=== PATIENT | female | born 1995 | race Caucasian/White ===

== ENCOUNTER 2017-09-06 11:01 | Inpatient (IN) | payer OTHER ==
[2017-09-06 11:40] VITALS: BMI 26.6
--- NOTE | 2017-09-06 14:00 | HP ---
COWS - Scale Resting Pulse: 0= OK 80 or Below Sweatin=Flushed/Facial Moisture Restless Observation: 3= Extraneous Movement Pupil Size: 2= Moderately Dilated Bone or Joint Aches: 2= Severe Diffuse Aches Runny Nose/ Eye Tearin= Runny Nose/Eyes GI Upset > 30mins: 3= Vomiting/Diarrhea Tremor Observation: 2= Slight Tremor Visible Yawning Observation: 2= >3x During Session Anxiety or Irritability: 2=Irritable/Anxious Goose Flesh Skin: 0=Smooth Skin COWS Score: 20 Admission ROS BHS - HPI Chief Complaint: i need help to stop using heroin and crystal meth Allergies/Adverse Reactions: Allergies Allergy/AdvReac Type Severity Reaction Status Date / Time No Known Allergies Allergy Verified 09/06/17 13:45 History of Present Illness: this 21 years old female with heroin and crystal meth,withdrawal symptom, seeking detox,last treatment in [place] 2 years ago syncope anxiety,depression,ptsd asthma nicotine dependence longest sobriety 4 months Exam Limitations: No Limitations - Ebola screening Have you traveled outside of the country in the last 21 days: No (N) Have you had contact with anyone from an Ebola affected area: No Have you been sick,other than usual withdrawal symptoms: No Do you have a fever: No Patient History - Patient Medical History Hx Anemia: No Hx Asthma: Yes (on albuterol inhlear) Hx Chronic Obstructive Pulmonary Disease (COPD): No Hx Cancer: No Hx Cardiac Disorders: No Hx Congestive Heart Failure: No Hx Hypertension: No Hx Hypercholesterolemia: No Hx Pacemaker: No HX Cerebrovascular Accident: No Hx Seizures: No Hx Dementia: No Hx Diabetes: No Hx Gastrointestinal Disorders: No Hx Liver Disease: No Hx Genitourinary Disorders: No Hx Sexually Transmitted Disorders: No Hx Renal Disease (ESRD): No Hx Thyroid Disease: No Hx Human Immunodeficiency Virus (HIV): No (last 07/08 negative) Hx Hepatitis C: No Hx Depression: Yes Hx Suicide Attempt: Yes (overdose at age [age],cutter at age 11f 10 years) Hx Bipolar Disorder: No Hx Schizophrenia: No Other Medical History: no suiidal,no homicidal - Patient Surgical History Past Surgical History: No - PPD History Previous Implant?: Yes Documented Results: Negative w/o proof Implanted On Prior [facility] Admission?: No PPD to be Administered?: Yes - Reproductive History Patient is a Female of Child Bearing Age (11 -55 yrs old): Yes Patient : No - Smoking Cessation Smoking history: Current every day smoker Have you smoked in the past 12 months: Yes Aproximately how many cigarettes per day: 20 Cigars Per Day: 0 Hx Chewing Tobacco Use: No Initiated information on smoking cessation: Yes 'Breaking Loose' booklet given: 09/06/17 - Substance & Tx. History Hx Alcohol Use: No Hx Substance Use: Yes Substance Use Type: Heroin Hx Substance Use Treatment: Yes (2016 in [place]) - Substances Abused Heroin Route: Injection Frequency: Daily Amount used: 20 BAGS Age of first use: 15 Date of Last Use: 09/04/17 CRYSTAL METH Route: Injection Frequency: Daily Amount used: 1 GRAM Age of first use: 20 Date of Last Use: 09/04/17 Family Disease History - Family Disease History Family Disease History: Other: Mother (alcohol,) Admission Physical Exam BHS - Vital Signs Vital Signs: Vital Signs - 24 hr 09/06/17 11:37 Temperature 96.8 F L Pulse Rate 96 H Respiratory 18 Rate Blood Pressure 124/70 - Physical General Appearance: Yes: Moderate Distress, Tremorous, Irritable, Sweating, Anxious HEENTM: Yes: Normal ENT Inspection, Normocephalic, JOCELIN, Other (gagnon ring in the face) Respiratory: Yes: Within Normal Limits, Lungs Clear, Normal Breath Sounds Neck: Yes: Within Normal Limits, Supple, Trachea in good position Breast: Yes: Breast Exam Deferred Cardiology: Yes: Within Normal Limits, Regular Rhythm, Regular Rate, S1, S2 Abdominal: Yes: Within Normal Limits, Normal Bowel Sounds, Non Tender, Soft Genitourinary: Yes: Within Normal Limits Back: Yes: Muscle Spasm Musculoskeletal: Yes: full range of Motion, Back pain, Muscle Pain Extremities: Yes: Normal Inspection, Normal Range of Motion, Tremors 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 NML intact, Alert, Motor Strength 5/5, Normal Mood /Affect Integumentary: Yes: Dry Lymphatic: Yes: Within Normal Limits - Diagnostic (1) Alcohol dependence with uncomplicated withdrawal Current Visit: Yes Status: Acute (2) Amphetamine addiction Current Visit: Yes Status: Acute (3) Asthma Current Visit: Yes Status: Acute (4) Depression Current Visit: Yes Status: Acute (5) Nicotine dependence Current Visit: Yes Status: Acute (6) Weight loss Current Visit: Yes Status: Acute Cleared for Admission [facility] - Detox or Rehab [facility] Level of Care: Medically Managed Detox Regimen/Protocol: Methadone [facility] Breath Alcohol Content Breath Alcohol Content: 0 Urine Pregancy Test - Result Urine Test Results: Negative- NO Line Present Urine Drug Screen - Results Drug Screen Negative: No Urine Drug Screen Results: OPI-Opiates, AMP-Amphetamines, MET-Methamphetamine
[2017-09-06] MEDS ORDERED: MAGNESIUM HYDROX 2400MG/30ML ORAL SUSPENSION 30 ML CUP PO PRN (14:16)
[2017-09-06] MEDS ORDERED: MAGNESIUM CITRATE 300 ML BOTTLE PO PRN (14:16)
[2017-09-06] MEDS ORDERED: ACETAMINOPHEN 325 MG TABLET (FP) PO PRN (14:16)
[2017-09-06] MEDS ORDERED: guaiFENesin/D-METHORPHAN HB 10 ML UNIT-DOSE CUPS PO PRN (14:16)
[2017-09-06] MEDS ORDERED: MENTHOL/PHENOL 1 EACH UD MM PRN (14:16)
[2017-09-06] MEDS ORDERED: IBUPROFEN 400 MG TABLET (FP) PO PRN (14:16)
[2017-09-06] MEDS ORDERED: MAG HYDROX/AL HYDROX/SIMETH 30 ML UNIT-DOSE CUP PO PRN (14:16)
[2017-09-06] MEDS ORDERED: NICOTINE POLACRILEX 2 MG GUM BC PRN (14:16)
[2017-09-06] MEDS ORDERED: LOPERAMIDE HCL 2 MG CAPSULE PO PRN (14:16)
[2017-09-06] MEDS ORDERED: P-EPHED 60MG/TRIPROLIDI 2.5MG TABLET PO PRN (14:16)
[2017-09-06] MEDS ORDERED: METHADONE HCL 10 MG TABLET (FOR DETOX USE ONLY) PO ONE ×2 (16:15→23:00)
--- NOTE | 2017-09-06 16:40 | CONSULT ---
[facility] Psychiatric Consult - Data Date of interview: 09/06/17 Admission source: [facility] Identifying data: This is 21 years old female, singlr, living at assisted, with heroin and crystal meth,withdrawal symptom,seeking for detox,. Reports psychiatric hospitalization history Substance Abuse History: Smoking Cessation. Smoking history: Current every day smoker. Have you smoked in the past 12 months: Yes. Aproximately how many cigarettes per day: 20. Cigars Per Day: 0. Hx Chewing Tobacco Use: No. Initiated information on smoking cessation: Yes. 'Breaking Loose' booklet given : 09/06/17. - Substance & Tx. History. Hx Alcohol Use: No. Hx Substance Use: Yes. Substance Use Type: Heroin. Hx Substance Use Treatment: Yes (2016 in [place]) Medical History: Denies significant medical issues Psychiatric History: Patient reports history of depression and anxiey, reports most recent psychiatric admission on 2016 at [facility] for [facility], reports taking priormtom admission: Risperdal 0.5mg po qhs. Gabapentine 30- 0mg po bid Physical/Sexual Abuse/Trauma History: Denies Additional Comment: Risperdal 0.5mg po qhs. Gabapentine 30-0mg po bid Mental Status Exam - Mental Status Exam Alert and Oriented to: Person Cognitive Function: Fair Patient Appearance: Well Groomed Mood: Anxious Affect: Mood Congruent Patient Behavior: Cooperative Speech Pattern: Appropriate Voice Loudness: Normal Thought Process: Goal Oriented Thought Disorder: Being Controlled Hallucinations: Denies Suicidal Ideation: Denies Homicidal Ideation: Denies Insight/Judgement: Fair Sleep: Difficulty falling asleep Appetite: Weight loss Muscle strength/Tone: Normal Gait/Station: Normal Additional Comments: Risperdal 0.5mg po qhs. Gabapentine 30-0mg po bid Psychiatric Findings - Problem List ([place] 1, 2,3) (1) Drug-induced mood disorder Current Visit: Yes Status: Acute (2) Alcohol dependence with uncomplicated withdrawal Current Visit: Yes Status: Acute (3) Amphetamine addiction Current Visit: Yes Status: Acute (4) Depression Current Visit: Yes Status: Acute (5) Nicotine dependence Current Visit: Yes Status: Acute (6) Weight loss Current Visit: Yes Status: Acute - Initial Treatment Plan Initial Treatment Plan: Risperdal 0.5mg po qhs. Gabapentine 30-0mg po bid
--- NOTE | 2017-09-06 16:54 | PN ---
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 Patient current does not use a wig but uses a hat to cover the bald spots. Plan : Allow patient to wear her hat on the unit.
[2017-09-06] MEDS: diazePAM 5 MG TABLET PO PRN ×2 (17:36→22:08)
[2017-09-06] MEDS: risperiDONE 0.5 MG TABLET (FP) PO SCH (22:07)
[2017-09-06] MEDS: THIAMINE HCL 100 MG TABLET (FP) PO SCH (22:07)
[2017-09-06] MEDS: GABAPENTIN 300 MG CAPSULE (FP) PO SCH (22:07)
[2017-09-06 23:28] LABS: URINE APPEARANCE SLCLOUDY; URINE BILIRUBIN NEGATIVE (NEGATIVE); URINE BLOOD NEGATIVE (NEGATIVE); URINE COLOR YELLOW; URINE GLUCOSE (UA) NEGATIVE (NEGATIVE); URINE KETONE NEGATIVE (NEGATIVE); URINE NITRITE NEGATIVE (NEGATIVE); URINE PROTEIN NEGATIVE (NEGATIVE); URINE UROBILINOGEN NEGATIVE mg/dL (0.2-1.0)
[2017-09-06 23:29] LABS: URINE LEUK ESTERASE 1+ (NEGATIVE)
[2017-09-06 23:33] LABS: EPI CELLS MODERATE /HPF (FEW); URINE BACTERIA RARE /hpf (NONE SEEN); URINE HYALINE CAST 1 /lpf; URINE MUCUS RARE
[2017-09-07] MEDS: diazePAM 5 MG TABLET PO PRN ×3 (02:08→22:05)
--- NOTE | 2017-09-07 08:00 | PN ---
S Progress Note Note: RESPONDED TO RAPID RESPONSE PATIENT WAS FOUND ON THE FLOOR IN THE BATHROOM BY STAFF ON ARRIVAL PATIENT IN IN BED NO SEIZURE ACTIVITY MOVEMENT ALL EXTREMITIES HEENT MORMAL,NECK NO JVD NO INJURY NOTED HEART NORMAL HEART SOUND LUNG CLEAR NO ABDOMINAL PAIN NO CALF TENDERNESS BP 115/74,P99,R29,T98.6 PULSE OX 99 IMPRESSION HISTORY OF A FALL FALL PROTOCOL 1 FALL PRECAUTION
--- NOTE | 2017-09-07 08:39 | PN ---
[facility] Progress Note Note: to er [facility] for evaluation,spoke with dr molina loya, correction r is 20 instead of 29
[2017-09-07 09:55] LABS: HEMATOCRIT 40.4 % (32.4-45.2); HEMOGLOBIN 12.8 GM/dL (10.7-15.3); MCH 27.3 pg (25.7-33.7); MCHC 31.6 g/dl (32.0-36.0); MEAN CELL VOLUME 86.2 fl (80-96); MEAN PLT VOLUME 11.6 fl (7.5-11.1); PLATELET COUNT 213 K/MM3 (134-434); RBC 4.68 M/mm3 (3.60-5.2); RDW 14.8 % (11.6-15.6); WHITE BLOOD COUNT 9.1 K/mm3 (4.0-10.0)
[2017-09-07] MEDS ORDERED: METHADONE HCL 10 MG TABLET (FOR DETOX USE ONLY) PO ONE (10:00)
[2017-09-07 10:09] LABS: ALBUMIN 3.7 g/dl (3.4-5.0); ANION GAP 6 (8-16); BLOOD UREA NITROGEN 7 mg/dL (7-18); CALCIUM 8.4 mg/dL (8.5-10.1); CHLORIDE 103 mmol/L (98-107); CO2 32 mmol/L (21-32); CREATININE 0.6 mg/dL (0.55-1.02); GLUCOSE,RANDOM 114 mg/dL (74-106); SGOT/AST 14 U/L (15-37); SGPT/ALT 23 U/L (12-78); SODIUM 141 mmol/L (136-145)
[2017-09-07 10:18] LABS: ALK PHOS 71 U/L (45-117); BILIRUBIN,TOTAL 0.5 mg/dL (0.2-1.0)
[2017-09-07] MEDS: GABAPENTIN 300 MG CAPSULE (FP) PO SCH ×2 (14:31→22:04)
[2017-09-07] MEDS: PRENATAL VITAMINS W/ FOLIC ACID TABLET (FP) PO SCH (14:31)
[2017-09-07] MEDS: THIAMINE HCL 100 MG TABLET (FP) PO SCH (22:04)
[2017-09-07] MEDS: risperiDONE 0.5 MG TABLET (FP) PO SCH (22:04)
[2017-09-08] MEDS ORDERED: METHADONE HCL 5 MG TABLET (FOR DETOX USE ONLY) PO ONE (10:00)
[2017-09-08] MEDS: diazePAM 5 MG TABLET PO PRN (10:39)
[2017-09-08] MEDS: PRENATAL VITAMINS W/ FOLIC ACID TABLET (FP) PO SCH (10:39)
[2017-09-08] MEDS: GABAPENTIN 300 MG CAPSULE (FP) PO SCH ×2 (10:39→22:27)
--- NOTE | 2017-09-08 15:47 | PN ---
S CIWA - CIWA Score Nausea/Vomitin Muscle Tremors: 3 Anxiety: 3 Agitation: 3 Paroxysmal Sweats: 1-Minimal Palms Moist Orientation: 0-Oriented Tacttile Disturbances: 1-Very Mild Itch/Numbness Auditory Disturbances: 1-Very Mild Visual Disturbances: 0-None Headache: 2-Mild CIWA-Ar Total Score: 17 BHS Progress Note (SOAP) Subjective: ALERT,IRRITABLE,ANXIOUS,INTERRUPTED SLEEP,TREMOR Objective: 09/08/17 15:45 Vital Signs Temperature 97.6 F 09/08/17 15:26 Pulse Rate 111 H 09/08/17 15:26 Respiratory Rate 16 09/08/17 15:26 Blood Pressure 116/55 09/08/17 15:26 O2 Sat by Pulse Oximetry (%) EKG SINUS RHYTHM WITH SINUS ARRHYTHMIA NORMAL ECG 09/08/17 15:47 Laboratory Last Values WBC 9.1 K/mm3 (4.0-10.0) 09/07/17 06:15 RBC 4.68 M/mm3 (3.60-5.2) 09/07/17 06:15 Hgb 12.8 GM/dL (10.7-15.3) 09/07/17 06:15 Hct 40.4 % (32.4-45.2) 09/07/17 06:15 MCV 86.2 fl (80-96) 09/07/17 06:15 MCH 27.3 pg (25.7-33.7) 09/07/17 06:15 MCHC 31.6 g/dl (32.0-36.0) L 09/07/17 06:15 RDW 14.8 % (11.6-15.6) 09/07/17 06:15 Plt Count 213 K/MM3 (134-434) 09/07/17 06:15 MPV 11.6 fl (7.5-11.1) H 09/07/17 06:15 Sodium 141 mmol/L (136-145) 09/07/17 06:15 Potassium 4.0 mmol/L (3.5-5.1) 09/07/17 06:15 Chloride 103 mmol/L (98-107) 09/07/17 06:15 Carbon Dioxide 32 mmol/L (21-32) 09/07/17 06:15 Anion Gap 6 (8-16) L 09/07/17 06:15 BUN 7 mg/dL (7-18) 09/07/17 06:15 Creatinine 0.6 mg/dL (0.55-1.02) 09/07/17 06:15 Creat Clearance w eGFR > 60 (>60) 09/07/17 06:15 POC Glucometer 89 UNITS (80-120) 09/07/17 07:39 Random Glucose 114 mg/dL (74-106) H 09/07/17 06:15 Calcium 8.4 mg/dL (8.5-10.1) L 09/07/17 06:15 Total Bilirubin 0.5 mg/dL (0.2-1.0) 09/07/17 06:15 AST 14 U/L (15-37) L 09/07/17 06:15 ALT 23 U/L (12-78) 09/07/17 06:15 Alkaline Phosphatase 71 U/L (45-117) 09/07/17 06:15 Total Protein 7.0 g/dl (6.4-8.2) 09/07/17 06:15 Albumin 3.7 g/dl (3.4-5.0) 09/07/17 06:15 Urine Color Yellow 09/06/17 23:10 Urine Appearance Slcloudy 09/06/17 23:10 Urine pH 7.0 (5.0-8.0) 09/06/17 23:10 Ur Specific [place] 1.009 (1.001-1.035) 09/06/17 23:10 Urine Protein Negative (NEGATIVE) 09/06/17 23:10 Urine Glucose (UA) Negative (NEGATIVE) 09/06/17 23:10 Urine Ketones Negative (NEGATIVE) 09/06/17 23:10 Urine Blood Negative (NEGATIVE) 09/06/17 23:10 Urine Nitrite Negative (NEGATIVE) 09/06/17 23:10 Urine Bilirubin Negative (NEGATIVE) 09/06/17 23:10 Urine Urobilinogen Negative mg/dL (0.2-1.0) 09/06/17 23:10 Ur Leukocyte Esterase 1+ (NEGATIVE) H 09/06/17 23:10 Urine WBC (Auto) 4 /hpf (3-5) 09/06/17 23:10 Urine RBC (Auto) <1 /hpf (0-3) 09/06/17 23:10 Ur Epithelial Cells Moderate /HPF (FEW) 09/06/17 23:10 Urine Bacteria Rare /hpf (NONE SEEN) 09/06/17 23:10 Hyaline Casts 1 /lpf 09/06/17 23:10 Urine Mucus Rare 09/06/17 23:10 RPR Titer Nonreactive (NONREACTIVE) 09/07/17 06:15 HIV 1&2 Antibody Screen Negative 09/06/17 14:40 HIV P24 Antigen Negative 09/06/17 14:40 Assessment: 09/08/17 15:47 WITHDRAWAL SYMPTOM Plan: CONTINUE DETOX
[2017-09-08] MEDS: ALBUTEROL SO4 18 GM HFA INHALER IH PRN (16:01)
[2017-09-08] MEDS: risperiDONE 0.5 MG TABLET (FP) PO SCH (22:27)
[2017-09-08] MEDS: THIAMINE HCL 100 MG TABLET (FP) PO SCH (22:27)
[2017-09-08] MEDS: hydrOXYzine PAMOATE 50 MG CAPSULE (FP) PO PRN (22:28)
[2017-09-09] MEDS ORDERED: METHADONE HCL 5 MG TABLET (FOR DETOX USE ONLY) PO ONE (10:00)
[2017-09-09] MEDS ORDERED: ONDANSETRON *ODT* 4 MG TABLET SL ONE (10:23)
--- NOTE | 2017-09-09 10:28 | PN ---
BHS COWS - Scale Resting Pulse: 1= [place] 81-100 Sweatin= Chills/Flushing Restless Observation: 1= Difficult to Sit Still Pupil Size: 0= Normal to Room Light Bone or Joint Aches: 1= Mild Discomfort Runny Nose/ Eye Tearin= Nasal Congestion GI Upset > 30mins: 2= Nausea/Diarrhea Tremor Observation of Outstretched Hands: 2= Slight Tremor Visible Yawning Observation: 1= 1-2x During Session Anxiety or Irritability: 2=Irritable/Anxious Goose Flesh Skin: 0=Smooth Skin COWS Score: 12 BHS Progress Note (SOAP) Subjective: GI distress sweat restlessness anxiety irritable Objective: 09/09/17 10:41 Vital Signs Temperature 98.0 F 09/09/17 06:15 Pulse Rate 81 09/09/17 06:15 Respiratory Rate 15 09/09/17 06:15 Blood Pressure 119/82 09/09/17 06:15 O2 Sat by Pulse Oximetry (%) Laboratory Last Values WBC 9.1 K/mm3 (4.0-10.0) 09/07/17 06:15 RBC 4.68 M/mm3 (3.60-5.2) 09/07/17 06:15 Hgb 12.8 GM/dL (10.7-15.3) 09/07/17 06:15 Hct 40.4 % (32.4-45.2) 09/07/17 06:15 MCV 86.2 fl (80-96) 09/07/17 06:15 MCH 27.3 pg (25.7-33.7) 09/07/17 06:15 MCHC 31.6 g/dl (32.0-36.0) L 09/07/17 06:15 RDW 14.8 % (11.6-15.6) 09/07/17 06:15 Plt Count 213 K/MM3 (134-434) 09/07/17 06:15 MPV 11.6 fl (7.5-11.1) H 09/07/17 06:15 Sodium 141 mmol/L (136-145) 09/07/17 06:15 Potassium 4.0 mmol/L (3.5-5.1) 09/07/17 06:15 Chloride 103 mmol/L (98-107) 09/07/17 06:15 Carbon Dioxide 32 mmol/L (21-32) 09/07/17 06:15 Anion Gap 6 (8-16) L 09/07/17 06:15 BUN 7 mg/dL (7-18) 09/07/17 06:15 Creatinine 0.6 mg/dL (0.55-1.02) 09/07/17 06:15 Creat Clearance w eGFR > 60 (>60) 09/07/17 06:15 POC Glucometer 89 UNITS (80-120) 09/07/17 07:39 Random Glucose 114 mg/dL (74-106) H 09/07/17 06:15 Calcium 8.4 mg/dL (8.5-10.1) L 09/07/17 06:15 Total Bilirubin 0.5 mg/dL (0.2-1.0) 09/07/17 06:15 AST 14 U/L (15-37) L 09/07/17 06:15 ALT 23 U/L (12-78) 09/07/17 06:15 Alkaline Phosphatase 71 U/L (45-117) 09/07/17 06:15 Total Protein 7.0 g/dl (6.4-8.2) 09/07/17 06:15 Albumin 3.7 g/dl (3.4-5.0) 09/07/17 06:15 Urine Color Yellow 09/06/17 23:10 Urine Appearance Slcloudy 09/06/17 23:10 Urine pH 7.0 (5.0-8.0) 09/06/17 23:10 Ur Specific [place] 1.009 (1.001-1.035) 09/06/17 23:10 Urine Protein Negative (NEGATIVE) 09/06/17 23:10 Urine Glucose (UA) Negative (NEGATIVE) 09/06/17 23:10 Urine Ketones Negative (NEGATIVE) 09/06/17 23:10 Urine Blood Negative (NEGATIVE) 09/06/17 23:10 Urine Nitrite Negative (NEGATIVE) 09/06/17 23:10 Urine Bilirubin Negative (NEGATIVE) 09/06/17 23:10 Urine Urobilinogen Negative mg/dL (0.2-1.0) 09/06/17 23:10 Ur Leukocyte Esterase 1+ (NEGATIVE) H 09/06/17 23:10 Urine WBC (Auto) 4 /hpf (3-5) 09/06/17 23:10 Urine RBC (Auto) <1 /hpf (0-3) 09/06/17 23:10 Ur Epithelial Cells Moderate /HPF (FEW) 09/06/17 23:10 Urine Bacteria Rare /hpf (NONE SEEN) 09/06/17 23:10 Hyaline Casts 1 /lpf 09/06/17 23:10 Urine Mucus Rare 09/06/17 23:10 RPR Titer Nonreactive (NONREACTIVE) 09/07/17 06:15 HIV 1&2 Antibody Screen Negative 09/06/17 14:40 HIV P24 Antigen Negative 09/06/17 14:40 lab noted Assessment: 09/09/17 10:42 withdrawal sx Plan: continue detox
[2017-09-09] MEDS: GABAPENTIN 300 MG CAPSULE (FP) PO SCH ×3 (11:14→23:36)
[2017-09-09] MEDS: diazePAM 5 MG TABLET PO PRN (11:14)
[2017-09-09] MEDS: PRENATAL VITAMINS W/ FOLIC ACID TABLET (FP) PO SCH (11:14)
[2017-09-09] MEDS: RANITIDINE HCL 150 MG TABLET (FP) PO SCH ×3 (11:16→23:36)
[2017-09-09] MEDS: hydrOXYzine PAMOATE 50 MG CAPSULE (FP) PO PRN (19:58)
[2017-09-09] MEDS: THIAMINE HCL 100 MG TABLET (FP) PO SCH ×2 (23:30→23:36)
[2017-09-09] MEDS: risperiDONE 0.5 MG TABLET (FP) PO SCH ×2 (23:30→23:36)
[2017-09-10] MEDS ORDERED: METHADONE HCL 10 MG TABLET (FOR DETOX USE ONLY) PO ONE (10:00)
[2017-09-10] MEDS: GABAPENTIN 300 MG CAPSULE (FP) PO SCH ×2 (10:33→22:21)
[2017-09-10] MEDS: ALBUTEROL SO4 18 GM HFA INHALER IH PRN (10:34)
[2017-09-10] MEDS: RANITIDINE HCL 150 MG TABLET (FP) PO SCH ×2 (10:34→22:21)
[2017-09-10] MEDS: PRENATAL VITAMINS W/ FOLIC ACID TABLET (FP) PO SCH (10:34)
--- NOTE | 2017-09-10 11:54 | PN ---
BHS Progress Note (SOAP) Subjective: anxious sleep disturbance Objective: 09/10/17 11:53 A & O x 3 In no acute distress Assessment: 09/10/17 11:53 Vital Signs Temperature 97.9 F 09/10/17 06:00 Pulse Rate 100 H 09/10/17 06:00 Respiratory Rate 18 09/10/17 06:00 Blood Pressure 114/68 09/10/17 06:00 O2 Sat by Pulse Oximetry (%) Plan: continue detox
[2017-09-10] MEDS: risperiDONE 0.5 MG TABLET (FP) PO SCH (22:21)
[2017-09-10] MEDS: THIAMINE HCL 100 MG TABLET (FP) PO SCH (22:21)
[2017-09-11] MEDS ORDERED: METHADONE HCL 5 MG TABLET (FOR DETOX USE ONLY) PO ONE (06:00)
[2017-09-11 06:29] VITALS: BP 113/53; PULSE 100; TEMP 98.1
[2017-09-11] MEDS: GABAPENTIN 300 MG CAPSULE (FP) PO SCH (09:10)
[2017-09-11] MEDS: RANITIDINE HCL 150 MG TABLET (FP) PO SCH (09:10)
[2017-09-11] MEDS: PRENATAL VITAMINS W/ FOLIC ACID TABLET (FP) PO SCH (09:10)
--- NOTE | 2017-09-11 10:31 | DS ---
[facility] Detox Discharge Summary Admission Date: 09/06/17 Discharge Date: 09/11/17 - History Present History: Opioid Dependence Pertinent Past History: nicotine dependence - Physical Exam Results Vital Signs: Vital Signs Temperature 98.1 F 09/11/17 06:00 Pulse Rate 100 H 09/11/17 06:00 Respiratory Rate 16 09/11/17 06:00 Blood Pressure 113/53 09/11/17 06:00 O2 Sat by Pulse Oximetry (%) Pertinent Admission Physical Exam Findings: withdrawal sx Laboratory Last Values WBC 9.1 K/mm3 (4.0-10.0) 09/07/17 06:15 RBC 4.68 M/mm3 (3.60-5.2) 09/07/17 06:15 Hgb 12.8 GM/dL (10.7-15.3) 09/07/17 06:15 Hct 40.4 % (32.4-45.2) 09/07/17 06:15 MCV 86.2 fl (80-96) 09/07/17 06:15 MCH 27.3 pg (25.7-33.7) 09/07/17 06:15 MCHC 31.6 g/dl (32.0-36.0) L 09/07/17 06:15 RDW 14.8 % (11.6-15.6) 09/07/17 06:15 Plt Count 213 K/MM3 (134-434) 09/07/17 06:15 MPV 11.6 fl (7.5-11.1) H 09/07/17 06:15 Sodium 141 mmol/L (136-145) 09/07/17 06:15 Potassium 4.0 mmol/L (3.5-5.1) 09/07/17 06:15 Chloride 103 mmol/L (98-107) 09/07/17 06:15 Carbon Dioxide 32 mmol/L (21-32) 09/07/17 06:15 Anion Gap 6 (8-16) L 09/07/17 06:15 BUN 7 mg/dL (7-18) 09/07/17 06:15 Creatinine 0.6 mg/dL (0.55-1.02) 09/07/17 06:15 Creat Clearance w eGFR > 60 (>60) 09/07/17 06:15 POC Glucometer 89 UNITS (80-120) 09/07/17 07:39 Random Glucose 114 mg/dL (74-106) H 09/07/17 06:15 Calcium 8.4 mg/dL (8.5-10.1) L 09/07/17 06:15 Total Bilirubin 0.5 mg/dL (0.2-1.0) 09/07/17 06:15 AST 14 U/L (15-37) L 09/07/17 06:15 ALT 23 U/L (12-78) 09/07/17 06:15 Alkaline Phosphatase 71 U/L (45-117) 09/07/17 06:15 Total Protein 7.0 g/dl (6.4-8.2) 09/07/17 06:15 Albumin 3.7 g/dl (3.4-5.0) 09/07/17 06:15 Urine Color Yellow 09/06/17 23:10 Urine Appearance Slcloudy 09/06/17 23:10 Urine pH 7.0 (5.0-8.0) 09/06/17 23:10 Ur Specific [place] 1.009 (1.001-1.035) 09/06/17 23:10 Urine Protein Negative (NEGATIVE) 09/06/17 23:10 Urine Glucose (UA) Negative (NEGATIVE) 09/06/17 23:10 Urine Ketones Negative (NEGATIVE) 09/06/17 23:10 Urine Blood Negative (NEGATIVE) 09/06/17 23:10 Urine Nitrite Negative (NEGATIVE) 09/06/17 23:10 Urine Bilirubin Negative (NEGATIVE) 09/06/17 23:10 Urine Urobilinogen Negative mg/dL (0.2-1.0) 09/06/17 23:10 Ur Leukocyte Esterase 1+ (NEGATIVE) H 09/06/17 23:10 Urine WBC (Auto) 4 /hpf (3-5) 09/06/17 23:10 Urine RBC (Auto) <1 /hpf (0-3) 09/06/17 23:10 Ur Epithelial Cells Moderate /HPF (FEW) 09/06/17 23:10 Urine Bacteria Rare /hpf (NONE SEEN) 09/06/17 23:10 Hyaline Casts 1 /lpf 09/06/17 23:10 Urine Mucus Rare 09/06/17 23:10 RPR Titer Nonreactive (NONREACTIVE) 09/07/17 06:15 HIV 1&2 Antibody Screen Negative 09/06/17 14:40 HIV P24 Antigen Negative 09/06/17 14:40 lab noted - Treatment Hospital Course: Detox Protocol Followed, Detoxed Safely, Responded well, Discharged Condition Good, Rehab Referral Accepted Patient has Accepted a Rehab Referral to: as per counselor arranged - Medication Discharge Medications: Ambulatory Orders Gabapentin 300 mg PO BID #60 capsule 09/06/17 Risperidone [Risperdal -] 0.5 mg PO HS #30 tablet 09/06/17 - Diagnosis (1) Alcohol dependence with uncomplicated withdrawal Status: Acute (2) Depression Status: Suspected Qualifiers: Depression Type: dysthymia Qualified Code(s): F34.1 - Dysthymic disorder - AMA Did Patient Leave Against Medical Advice: No
--- NOTE | 2017-09-14 11:48 | EKG ---
Test Reason : Blood Pressure : / mmHG Vent. Rate : 065 BPM Atrial Rate : 065 BPM P-R Int : 144 ms QRS Dur : 102 ms QT Int : 434 ms P-R-T Axes : 061 057 061 degrees QTc Int : 451 ms NORMAL SINUS RHYTHM WITH SINUS ARRHYTHMIA NORMAL ECG NO PREVIOUS ECGS AVAILABLE Confirmed by ALIA VEGA MD ([id number]) on 09/07/2017 9:20:45 AM Also confirmed by ALIA VEGA MD ([id number]), video effects editor CHRISS PANTOJA ([id number]) on 09/14/2017 11:48:07 AM Referred By: Confirmed By:ALIA VEGA MD
== END 2017-09-11 09:30 | disposition home or self-care (01) | DRG 775 ==
LOC: YASAS 11:01 → Y6N 15:15
PROVIDERS: ADMIT Internal Medicine; ATTEND Internal Medicine
PROC: HZ2ZZZZ Detoxification Services for Substance Abuse Treatment (ICD-10-PCS; principal; 2017-09-06)
DX: F10.230 Alcohol dependence with withdrawal, uncomplicated (principal); F15.20 Other stimulant dependence, uncomplicated; F17.210 Nicotine dependence, cigarettes, uncomplicated; F19.24 Other psychoactive substance dependence with psychoactive substance-induced mood disorder; F34.1 Dysthymic disorder; J45.909 Unspecified asthma, uncomplicated; R63.4 Abnormal weight loss; Z68.26 Body mass index [BMI] 26.0-26.9, adult; Z91.5 Personal history of self-harm; Z59.0 Homelessness
CPT/HCPCS: 36415; 80053; 81003; 81015; 82962; 85027; 86593; 87389; 93005; 93010

== ENCOUNTER 2017-09-07 09:23 | Emergency (ER) | payer OTHER ==
--- NOTE | 2017-09-07 09:37 | PDOC ---
History of Present Illness - General History Source: Patient, EMS Exam Limitations: No Limitations - History of Present Illness Initial Comments: 09/07/17 11:13 Patient is a 21 year old female, from [facility], with a significant past medical history of Asthma, Anemia, and Polysubstance abuse, who presents to the ED s/p possible fall. As per EMS patient was found by Detox staff unresponsive on the floor in her bathroom, before waking up and walking to her bed, prompting the center to follow protocol and send the patient to the ED for further evaluation. Patient reports being unable to sleep last night, after receiving prescribed medications before bed. She reports waiting online for her medications this morning she begun to experience increased warmth and irritability. Patient reports going back to her room, before beginning to cry and experience slight nausea. She reports experiencing 1 episode of vomiting stating, it felt like i was beginning to choke on my vomiting which made me start to panic. She reports feeling her throat close up followed by associated chest heaviness that she states felt like a brick was on my chest, before losing consciousness. Pt notes she was hunched over on the toilet when she syncopized. Patient currently reports experiencing mid diffuse crampy abdominal pain as well as associated headache and nausea that she states feels similar to her withdrawal experiences. Denies change in vision, neck pain, back pain, extremity pain. Denies contact with sick individuals, out of state travelling. Denies constipation, diarrhea, dysuria, hematuria. Denies any other symptoms. LMP was in dec, notes she has irregular periods. Allergies: None Social history: Lives 2 [facility]. Current smoker. No alcohol. Crystal Meth and Heroin use. Surgical history: None PMD: None <Luis Regalado - Last Filed: 09/07/17 11:13> <Michael Taylor - Last Filed: 09/07/17 12:41> - General Stated Complaint: FALL Time Seen by Provider: 09/07/17 09:29 Past History <Luis Regalado - Last Filed: 09/07/17 11:13> - Past Medical History Anemia: No Asthma: Yes (on albuterol inhlear) Cancer: No Cardiac Disorders: No CVA: No COPD: No CHF: No Dementia: No Diabetes: No GI Disorders: No Disorders: No HTN: No Hypercholesterolemia: No Kidney Stones: No Liver Disease: No Seizures: No Thyroid Disease: No - Reproductive History PID: No - Suicide/Smoking/Psychosocial Hx Smoking History: Current every day smoker Have you smoked in the past 12 months: Yes Number of Cigarettes Smoked Daily: 20 Cigars Per Day: 0 'Breaking Loose' booklet given: 09/06/17 Hx Alcohol Use: No Drug/Substance Use Hx: Yes Substance Use Type: Heroin Hx Substance Use Treatment: Yes (2016 in [place]) <Michael Taylor - Last Filed: 09/07/17 12:41> - Past Medical History Allergies/Adverse Reactions: Allergies Allergy/AdvReac Type Severity Reaction Status Date / Time No Known Allergies Allergy Verified 09/07/17 09:43 Home Medications: Ambulatory Orders Gabapentin 300 mg PO BID #60 capsule 09/06/17 Gabapentin [Neurontin -] 0 mg PO BID 09/06/17 Risperidone [Risperdal -] 0.5 mg PO HS #30 tablet 09/06/17 Review of Systems - Review of Systems Able to Perform ROS?: Yes Comments:: 09/07/17 11:14 CONSTITUTIONAL: No reported: Fever, Chills, Diaphoresis, Generalized Weakness, Malaise, Loss of Appetite HEENT: No reported: Rhinorrhea, Nasal Congestion, Throat Pain, Throat Swelling, Difficulty Swallowing, Mouth Swelling, Ear Pain, Eye Pain, Visual Changes CARDIOVASCULAR: +Chest tightness No reported: Syncope, Palpitations, Irregular Heart Rate, Lightheadedness, Peripheral Edema RESPIRATORY: No reported: Cough, SOB with Exertion, Orthopnea, Wheezing, Stridor, Hemoptysis GASTROINTESTINAL: +Abdominal pain. +Nausea. +vomiting. No reported: Abdominal Distension, Diarrhea, Constipation, Melena, Hematochezia GENITOURINARY: No reported: Dysuria, Frequency, Urgency, Hesitancy, Flank Pain, Genital Pain MUSCULOSKELETAL: No reported: Myalgia, Arthralgia, Joint Swelling, Back pain, Neck Pain SKIN: No reported: Rash, Itching, Pallor HEMATOLOGIC/IMMUNOLOGIC: No reported: Easy Bleeding, Easy Bruising, Lymphadenopathy, Frequent infections ENDOCRINE: No reported: Unexplained Weight Gain, Unexplained Weight Loss, Heat Intolerance , Cold Intolerance NEUROLOGIC: +Headache, No reported: Focal Weakness, Paresthesias, Vertigo, Lightheadedness, Unsteady Gait, Seizure, Mental Status Changes, Incontinence PSYCHIATRIC: No reported: Anxiety, Depression All Other Systems: Reviewed and Negative <Luis Regalado - Last Filed: 09/07/17 11:13> *Physical Exam - Vital Signs Last Vital Signs Temp Pulse Resp BP Pulse Ox 98.3 F 102 H 18 109/63 100 09/07/17 09:25 09/07/17 09:25 09/07/17 09:25 09/07/17 09:25 09/07/17 09:25 - Physical Exam Comments: 09/07/17 11:14 GENERAL: The patient is awake, alert, and fully oriented, Nontoxic - in no acute distress. HEAD: +Mild left scalp tenderness. Normocephalic, atraumatic. EYES: pupils 3mm and reactive symmetrically, extraocular movements intact, sclera anicteric, conjunctiva clear. ENT: +Dry mucus membrane. Normal voice, NECK: Normal range of motion, No JVD, no focal midline tenderness incervical/ thoracic/lumbar spine LUNGS: Breath sounds equal, clear to auscultation bilaterally. No wheezes, no rhonchi, no rales. HEART: Regular rate and rhythm, normal S1 and S2 without murmur, rub or gallop. ABDOMEN: Soft, nontender, normoactive bowel sounds. No guarding, no rebound. No masses. No CVA tenderness EXTREMITIES: Normal range of motion, no edema. No clubbing or cyanosis. No cords , erythema, or tenderness. NEUROLOGICAL: No facial asymmetry, Normal speech, normal gait. PSYCH: Normal mood, normal affect. SKIN: Warm, Dry, normal turgor. <Luis Regalado - Last Filed: 09/07/17 11:13> Heart Score/ECG Review - ECG Impressions Comment:: 09/07/17 09:59 Twelve-lead EKG was performed and reviewed by me. There is normal sinus rhythm with a normal rate. rate of [address] changes suggestive of acute ischemia intervals are normal <Michael Taylor - Last Filed: 09/07/17 12:41> ED Treatment Course - ADDITIONAL ORDERS Additional order review: Laboratory Results 09/07/17 09/07/17 09:45 09:45 Lipase 89 Serum , Qual Negative <Luis Regalado - Last Filed: 09/07/17 11:13> Medical Decision Making - Medical Decision Making 09/07/17 09:47 21y F hx of heroin use, asthma, anemia, migraine headaches presents from [facility] for evaluation of unwitnessed fall. The patient is at detox for heroin, arrived eysterday, couldnt sleep last night so recieved several doses of valuim to help her sleep, untilmately she didnt sleep well, and started feeling sick when she went to get her meds. she went to the bathroom where she was at the [facility] and thinks she may have syncopized there. The patient endorses mild headache and abd pain c/w her detox syndrome. Currently states she feels a bit better. on exam pt appears well mildldy dry mmm mild scalp tenderness to the L scalp abd soft nontender will give tylenol, reglan, liter of LR will ck pregnency test and lipase pt had cbc and cmp and UA sent form [facility] so will defer sending these labs A portion of this note was documented by scribe services under my direction. I have reviewed the details of the note, within reason, and agree with the documentation with the following case summary and management plan written by me 09/07/17 12:41 pt feeling better labs reviewed and unremarkble ct unremarkble pts abd reassessed and is soft nontender will dc back to [facility] for detox I discussed the physical exam findings, ancillary test results and final diagnoses with the patient. I answered all of the patient's questions. The patient was satisfied with the care received and felt comfortable with the discharge plan and treatment plan. The patient will call their primary care physician within 24 hours to arrange follow-up and will return to the Emergency Department with any new, persistent or worsening symptoms. <Michael Taylor - Last Filed: 09/07/17 12:41> *DC/Admit/Observation/Transfer - Attestations Scribe Attestion: 09/07/17 11:14 Documentation prepared by Luis Regalado, acting as medical aide for Michael Taylor MD, /DO. <Luis Regalado - Last Filed: 09/07/17 11:13> - Discharge Dispostion Admit: No <Michael Taylor - Last Filed: 09/07/17 12:41> Diagnosis at time of Disposition: Head injury due to trauma Qualifiers: Encounter type: initial encounter Qualified Code(s): S09.90XA - Unspecified injury of head, initial encounter - Discharge Dispostion Condition at time of disposition: Stable - Referrals Referrals: Annelise Conner MD [House Staff] - - Patient Instructions Printed Discharge Instructions: DI for Closed Head Injury Additional Instructions: Return to the emergency department immediately with ANY new, persistent or worsening symptoms. You MUST call and follow up with your doctor tomorrow for further evaluation of your symptoms. Results were discussed with you. Please make sure your doctor reviews the results of your emergency evaluation. If you had any xrays during your visit, it was read preliminarily by myself, a Radiologist will review it and if there are any additional findings we will call you.
[2017-09-07] MEDS ORDERED: LACTATED RINGERS SOLUTION 1,000 ML/1,000 ML INFUS.BAG IV SCH (09:45)
[2017-09-07 09:59] VITALS: BMI 26.5
[2017-09-07 14:40] VITALS: BP 133/67; PULSE 87; TEMP 98.1
--- NOTE | 2017-09-08 12:15 | EKG ---
Test Reason : Blood Pressure : / mmHG Vent. Rate : 091 BPM Atrial Rate : 091 BPM P-R Int : 160 ms QRS Dur : 088 ms QT Int : 362 ms P-R-T Axes : 067 059 059 degrees QTc Int : 445 ms NORMAL SINUS RHYTHM POSSIBLE LEFT ATRIAL ENLARGEMENT BORDERLINE ECG WHEN COMPARED WITH ECG OF 06-SEP-2017 17:17, NO SIGNIFICANT CHANGE WAS FOUND Confirmed by GIDEON FLETCHER, DB ([id number]) on 09/08/2017 12:14:58 PM Referred By: Confirmed By:DB MENESES MD
== END 2017-09-07 14:40 | disposition home or self-care (01) ==
LOC: JER 09:23
PROC: 3E0337Z Introduction of Electrolytic and Water Balance Substance into Peripheral Vein, Percutaneous Approach (ICD-10-PCS; principal; 2017-09-07)
DX: S09.8XXA Other specified injuries of head, initial encounter (principal); W18.39XA Other fall on same level, initial encounter; Y93.89 Activity, other specified; Y92.231 Patient bathroom in hospital as the place of occurrence of the external cause; Y99.8 Other external cause status; J45.909 Unspecified asthma, uncomplicated; F11.20 Opioid dependence, uncomplicated; F17.210 Nicotine dependence, cigarettes, uncomplicated
CPT/HCPCS: 36415; 70450-TC; 83690; 84703; 93005; 93010; 96360; 99284-25